=== PATIENT | female | born 1960 | race Caucasian/White ===

== ENCOUNTER 2016-11-21 08:19 | Emergency (ER) | payer OTHER ==
[~2016-11-21] VITALS: Wt 79.5 kg
[~2016-11-21 08:19] MED LIST: ALBU8.5H3 INH; CETI10CA PO; DM/P295L11 PO; GUAI118L94 PO; HYDR-580 PO; HYDR-906 PO; IBUP-1542 PO; IBUP800T25 PO; METH-70 PO; NAPR-688 PO; ONDA4TAB35 PO; ONDA4TAB8 PO; ULT50 PO
[2016-11-21] MEDS ORDERED: KETOROLAC 30 MG INJ IM STA (08:45)
--- NOTE | 2016-11-21 08:52 | ERD ---
ER Documentation Chief Complaint Date/Time DATE: 11/21/16 TIME: 08:48 Chief Complaint LOW BACK PAIN RADIATING TO RIGHT LEG, HX OF SCIATICA HPI This patient is a 56-year-old female with history of sciatica presenting to the emergency department for right-sided low back pain radiating down her leg. She states the pain is currently a 7 out of 10 but it was a 10 out of 10 last night. She took Tylenol with mild relief of her symptoms. She denies any loss of bowel or bladder function. She states she cannot take [place] because it makes her feel anxious and she would rather have an injection of Toradol. Toradol has relieved her pain in the past. She denies trauma, nausea, vomiting , diarrhea, urinary symptoms, and all other symptoms at this time. ROS All systems reviewed and are negative except as per history of present illness. Medications Home Meds Active Scripts Naproxen* (Naprosyn*) 500 Mg Tablet, 500 MG PO BID Y for PAIN AND/OR INFLAMMATION, #15 TAB Prov:KENA GREER PA-C 11/21/16 Cyclobenzaprine Hcl* (Cyclobenzaprine Hcl*) 10 Mg Tablet, 10 MG PO TID, #15 TAB Prov:KENA GREER PA-C 11/21/16 Hydrocodone/Acetaminophen ([place] 5-325 Tablet) 1 Each Tablet, 1 TAB PO Q6H Y for PAIN, #20 TAB Prov:ARTHUR JOSEPH PA-C 10/14/16 Ibuprofen* (Motrin*) 800 Mg Tab, 800 MG PO Q6H Y for PAIN AND OR ELEVATED TEMP, #30 TAB Prov:ARTHUR JOSEPH PA-C 10/14/16 Hydrocodone Bit-Acetaminophen ([place]) 7.5-325 Mg Tablet, 2 TAB PO Q4H Y for PAIN , #20 TAB Prov:PRETTY CHUNGSTOLOS AParker DO 05/13/16 Methocarbamol* (Robaxin*) 750 Mg Tablet, 750 MG PO TID, #30 TAB Prov:LEKKOS,APOSTOLOS A. DO 05/13/16 Ibuprofen* (Motrin*) 800 Mg Tab, 800 MG PO Q6H Y for PAIN AND OR ELEVATED TEMP, #30 TAB Prov:VANDANAOSAPOSTOLOS A. DO 05/13/16 Ibuprofen* (Motrin*) 600 Mg Tab, 600 MG PO Q6H Y for PAIN AND OR ELEVATED TEMP, #30 TAB Prov:JACQUES DURAN NP 04/04/16 Cetirizine Hcl* (Zyrtec*) 10 Mg Capsule, 10 MG PO DAILY, #30 TAB.CHEW Prov:JACQUES DURAN NP 04/04/16 Albuterol Sulfate* (Proair HFA*) 8.5 Gm Hfa.aer.ad, 2 PUFF INH Q4H Y for WHEEZING AND SOB, #1 INHALER Prov:JACQUES DURAN NP 04/04/16 Guaifenesin-Codeine Phosphate* (Guaifenesin* with Codeine Liq) 120 Ml Liquid, 5 ML PO Q4H for COUGH, #60 ML Prov:JACQUES DURAN NP 04/04/16 Ondansetron Hcl* (Zofran*) 4 Mg Tablet, 4 MG PO Q6H for NAUSEA AND/OR VOMITING, #7 TAB Prov:HOWARD BLAKELY PA-C 01/09/16 Tramadol HCl (Tramadol HCl) 50 Mg Tablet, 50 MG PO Q4 Y for PAIN, #14 TAB Prov:HOWARD BLAKELY PA-C 01/09/16 Hydrocodone Bit-Acetaminophen ([place]) 5-325 Mg Tablet, 1 TAB PO Q4H Y for PAIN, #10 TAB Prov:DENISSE THOMAS DO 10/19/15 Ondansetron Hcl* (Zofran* ODT) 4 mg -ODT Tab.disper, 4 MG PO Q4H Y for NAUSEA AND OR VOMITING, #10 TAB Prov:DENISSE THOMAS DO 10/19/15 Naproxen* (Naproxen*) 500 Mg Tablet, 500 MG PO BID Y for PAIN, #20 TAB Prov:DENISSE THOMAS DO 10/19/15 Ibuprofen* (Motrin*) 800 Mg Tab, 800 MG PO TID, #20 TAB Prov:DOMO GOMES 10/16/15 Reported Medications Dm/P-Ephed/Acetaminoph/Doxylam (Nyquil D Cold & Flu Liquid) Unknown Strength Liquid, PO, EA 04/03/16 Allergies Allergies: Coded Allergies: No Known Allergy (Unverified , 11/21/16) PMhx/Soc History of Surgery: Yes (right renal surgery) Anesthesia Reaction: No Hx Neurological Disorder: No Hx Respiratory Disorders: No Hx Cardiac Disorders: Yes (HTN) Hx Psychiatric Problems: No Hx Miscellaneous Medical Probl: No Hx Alcohol Use: No Hx Substance Use: No Hx Tobacco Use: No Smoking Status: Never smoker FmHx Noncontributory for chief complaint Physical Exam Vitals Vital Signs Date Time Temp Pulse Resp B/P Pulse Ox O2 Delivery O2 Flow Rate FiO2 11/21/16 08:20 96.5 95 17 145/72 98 Physical Exam INITIAL VITAL SIGNS: Reviewed by me. GENERAL: Alert and interactive. No acute distress. HEAD: Head is normocephalic and atraumatic. EYES: EOMI. No scleral icterus. No conjunctival injection. ENT: Moist mucosa. NECK: Supple. Full range of motion. JIMY: Positive straight leg test on the right side. Tenderness to palpation of the paraspinal muscles of the L-spine on the right side. RESPIRATORY: Normal respiratory effort. Clear breath sounds bilaterally. No wheezing, rales, or rhonchi. CV: Regular rate and rhythm. Normal S1 S2. No S3 or S4. No murmurs. ABDOMEN: Soft, non-distended, non-tender. No guarding. No rebound. No masses. EXTREMITIES: No deformity. SKIN: Warm and dry. NEUROLOGIC: Alert and oriented x 4. Speech is normal. Moves all extremities equally. No motor or sensory deficits noted. Results 24 hrs Current Medications Medications (Trade) Dose Ordered Sig/Carmita Route PRN Reason Start Time Stop Time Status Last Admin Dose Admin Ketorolac Tromethamine (Toradol) 30 mg ONCE STAT IM 11/21/16 08:45 11/21/16 08:47 DC 11/21/16 08:50 Procedures/MDM MDM: This patient is a 56-year-old female presenting to the emergency department for right-sided sciatica which she has had for 4 months but has been worsening since last night. On physical examination there is positive straight leg raise on the right side and tenderness to palpation of the paraspinal muscles on the right side. The patient will be given injection of Toradol for acute pain relief in the department. The patient's primary diagnosis is sciatica. At this time I have low suspicion for cauda equina, any midline spine abnormalities , or other spine emergencies. On reevaluation the patient is feeling slightly improved. The patient will be given a prescription for naproxen and Flexeril for acute pain relief at home. The patient agrees with the plan and her questions and concerns of been addressed. The patient is stable for discharge at this time peer Departure Diagnosis: Primary Impression: Sciatica Additional Impression: Back pain Condition: Stable Patient Instructions: Back Pain W/ Sciatica [facility] Additional Instructions: No mas mejor en 2-3 moon, regresar. Mas peor en 24 horas, regresear rapidamente. Ir a doctor primario in 5-7 moon. Usar instrucciones cuando toya medicamento. KENA GREER PA-C Nov 21, 2016 08:52
[2016-11-21] MEDS ORDERED: NAPR-260 PO (09:03)
[2016-11-21] MEDS ORDERED: CYCL-319 PO (09:03)
== END 2016-11-21 09:11 | disposition home or self-care (01) ==
LOC: FTE 08:19
DX: M54.41 Lumbago with sciatica, right side (principal); I10 Essential (primary) hypertension
CPT/HCPCS: 96372; J1885; Z7502

== ENCOUNTER 2017-03-03 16:31 | Emergency (ER) | payer OTHER ==
[~2017-03-03] VITALS: Ht 157.5 cm; Wt 79.9 kg
[~2017-03-03 16:31] MED LIST changes: +CYCL-319 PO; +NAPR-260 PO; +TRAM50TA2 PO; -ULT50 PO
[2017-03-03 16:40] VITALS: Ht 157.5 cm; Wt 79.9 kg
[2017-03-03] MEDS ORDERED: BEN50 PO (16:55)
[2017-03-03] MEDS ORDERED: NAPR-260 PO (16:55)
[2017-03-03] MEDS ORDERED: PRED20TA PO (16:56)
--- NOTE | 2017-03-03 17:07 | ERD ---
ER Documentation Chief Complaint Date/Time DATE: 03/03/17 TIME: 17:05 Chief Complaint rash, itc jossy today HPI This is a 56-year-old female presents to the ER with an itchy rash that started today. Rash is located all over her body and is extremely itchy. She denies any fevers or chills. She denies any facial, tongue, mouth swelling. She denies any difficulty in breathing she denies any chest pain or shortness of breath. Patient has not come in contact with any new medications or substances. ROS 12 point review of systems was done, all negative except per HPI. Medications Home Meds Active Scripts Prednisone* (Prednisone*) 20 Mg Tab, 60 MG PO DAILY for 4 Days, TAB Prov:TAWANNA RODRIGUEZ 03/03/17 Diphenhydramine Hcl* (Benadryl*) 50 Mg Cap, 50 MG PO Q6 Y for ITCHING, #30 CAP Prov:TAWANNA RODRIGUEZ 03/03/17 Naproxen* (Naprosyn*) 500 Mg Tablet, 500 MG PO BID Y for PAIN AND/OR INFLAMMATION, #30 TAB Prov:TAWANNA RODRIGUEZ 03/03/17 Naproxen* (Naprosyn*) 500 Mg Tablet, 500 MG PO BID Y for PAIN AND/OR INFLAMMATION, #15 TAB Prov:KENA GREER PA-C 11/21/16 Cyclobenzaprine Hcl* (Cyclobenzaprine Hcl*) 10 Mg Tablet, 10 MG PO TID, #15 TAB Prov:KENA GREER PA-C 11/21/16 Hydrocodone/Acetaminophen ([place] 5-325 Tablet) 1 Each Tablet, 1 TAB PO Q6H Y for PAIN, #20 TAB Prov:ARTHUR JOSEPH PA-C 10/14/16 Ibuprofen* (Motrin*) 800 Mg Tab, 800 MG PO Q6H Y for PAIN AND OR ELEVATED TEMP, #30 TAB Prov:ARTHUR JOSEPH PA-C 10/14/16 Hydrocodone Bit-Acetaminophen ([place]) 7.5-325 Mg Tablet, 2 TAB PO Q4H Y for PAIN , #20 TAB Prov:VIDAL CHUNG DO 05/13/16 Methocarbamol* (Robaxin*) 750 Mg Tablet, 750 MG PO TID, #30 TAB Prov:VIDAL CHUNG. DO 05/13/16 Ibuprofen* (Motrin*) 800 Mg Tab, 800 MG PO Q6H Y for PAIN AND OR ELEVATED TEMP, #30 TAB Prov:VIDAL CHUNG A. DO 05/13/16 Ibuprofen* (Motrin*) 600 Mg Tab, 600 MG PO Q6H Y for PAIN AND OR ELEVATED TEMP, #30 TAB Prov:JACQUES DURAN NP 04/04/16 Cetirizine Hcl* (Zyrtec*) 10 Mg Capsule, 10 MG PO DAILY, #30 TAB.CHEW Prov:JACQUES DURAN NP 04/04/16 Albuterol Sulfate* (Proair HFA*) 8.5 Gm Hfa.aer.ad, 2 PUFF INH Q4H Y for WHEEZING AND SOB, #1 INHALER Prov:JACQUES DURAN NP 04/04/16 Guaifenesin-Codeine Phosphate* (Guaifenesin* with Codeine Liq) 120 Ml Liquid, 5 ML PO Q4H for COUGH, #60 ML Prov:JACQUES DURAN NP 04/04/16 Ondansetron Hcl* (Zofran*) 4 Mg Tablet, 4 MG PO Q6H for NAUSEA AND/OR VOMITING, #7 TAB Prov:HOWARD BLAKELY PA-C 01/09/16 Tramadol HCl (Tramadol HCl) 50 Mg Tablet, 50 MG PO Q4 Y for PAIN, #14 TAB Prov:HOWARD BLAKELY PA-C 16 Hydrocodone Bit-Acetaminophen ([place]) 5-325 Mg Tablet, 1 TAB PO Q4H Y for PAIN, #10 TAB Prov:DENISSE THOMAS DO 10/19/15 Ondansetron Hcl* (Zofran* ODT) 4 mg -ODT Tab.disper, 4 MG PO Q4H Y for NAUSEA AND OR VOMITING, #10 TAB Prov:DENISSE THOMAS DO 10/19/15 Naproxen* (Naproxen*) 500 Mg Tablet, 500 MG PO BID Y for PAIN, #20 TAB Prov:DENISSE THOMAS DO 10/19/15 Ibuprofen* (Motrin*) 800 Mg Tab, 800 MG PO TID, #20 TAB Prov:DOMO GOMES 10/16/15 Reported Medications Dm/P-Ephed/Acetaminoph/Doxylam (Nyquil D Cold & Flu Liquid) Unknown Strength Liquid, PO, EA 04/03/16 Allergies Allergies: Coded Allergies: No Known Allergy (Unverified , 11/21/16) PMhx/Soc History of Surgery: Yes (right renal surgery) Anesthesia Reaction: No Hx Neurological Disorder: No Hx Respiratory Disorders: No Hx Cardiac Disorders: Yes (HTN) Hx Psychiatric Problems: No Hx Miscellaneous Medical Probl: No Hx Alcohol Use: No Hx Substance Use: No Hx Tobacco Use: No Physical Exam Vitals Vital Signs Date Time Temp Pulse Resp B/P Pulse Ox O2 Delivery O2 Flow Rate FiO2 03/03/17 16:40 98.1 86 20 149/67 99 Physical Exam GENERAL: The patient is well developed and appropriate for usual state of health , in no apparent distress. HEENT: Atraumatic. There is no eye, lip, tongue swelling. CHEST: Clear to auscultation bilaterally. There are no rales, wheezes or rhonchi. HEART: Regular rate and rhythm. No murmurs, clicks, rubs or gallops. NEURO: Alert and oriented. . SKIN: Hives all over the body. Procedures/MDM Differential Diagnosis: dermatitis, allergic urticaria, viral exanthem, insect bite, fungal infection ,viral exanthem, hand foot mouth disease, , impetigo, cellulitis, abscess, mar homer syndrome, meningocemia, necrotizing fasciitis, myositis. This is a 56-year-old female that presents to the ER with a rash all over her body. Patient does appear to be having an allergic reaction. Suspicion for severe allergic reaction is low. Patient does not have any facial swelling or difficulty in breathing. Patient will be sent home with Benadryl and with prednisone. Patient needs to follow-up with her primary care doctor within 1-2 days or return to ER sooner symptoms worsen. My medical decision making [place] with the patient she understands and agrees with plan. Departure Diagnosis: Primary Impression: Rash Condition: Stable Patient Instructions: Allergic Reaction, Other (General) Referrals: JESSICA NIXON (PCP) Additional Instructions: Llame al doctor MAANA y meño yoav RENEE PARA DENTRO DE 1-2 LIN.Dgale a la secretaria que nosotros le instruimos hacer esta renee.Avise o llame si zepeda condicin se empeora antes de la renee. Regresa aqui si peor o no mejor. TAWANNA RODRIGUEZ Mar 03, 2017 17:07
== END 2017-03-03 16:58 | disposition home or self-care (01) ==
LOC: E/R 16:31
DX: R21 Rash and other nonspecific skin eruption (principal); I10 Essential (primary) hypertension
CPT/HCPCS: 99283

== ENCOUNTER 2018-04-14 10:44 | Emergency (ER) | END 2018-04-14 13:37 | disposition home or self-care (01) ==

== ENCOUNTER 2018-07-12 05:55 | Emergency (ER) | END 2018-07-12 07:31 | disposition home or self-care (01) ==

== ENCOUNTER 2018-09-23 20:04 | Emergency (ER) | END 2018-09-24 01:10 | disposition home or self-care (01) ==

== ENCOUNTER 2018-10-15 12:44 | Emergency (ER) | END 2018-10-15 18:28 | disposition left against medical advice (07) ==